=== PATIENT | male | born 1995 | race Caucasian/White ===

== ENCOUNTER 2017-06-16 19:14 | Emergency (ER) | payer OTHER ==
[~2017-06-16] VITALS: Ht 182.9 cm; Wt 86.4 kg
[2017-06-16 19:15] VITALS: BP 146/93; PULSE 113; TEMP 99.6
== END 2017-06-16 20:22 | disposition home or self-care (01) ==
LOC: COL.ER 19:14
DX: J02.0 Streptococcal pharyngitis (principal)
CPT/HCPCS: J0561

== ENCOUNTER 2017-12-05 10:31 | Emergency (ER) | payer OTHER ==
[~2017-12-05] VITALS: Ht 182.9 cm; Wt 81.8 kg
[2017-12-05 10:51] VITALS: TEMP 98.4
[2017-12-05 12:15] VITALS: BP 121/72; PULSE 70
== END 2017-12-05 12:15 | disposition home or self-care (01) ==
LOC: COL.ER 10:31
DX: J03.90 Acute tonsillitis, unspecified (principal)
CPT/HCPCS: J0561